=== PATIENT | female | born 1960 | race Caucasian/White ===

== ENCOUNTER 2022-07-11 17:43 | Emergency (ER) | payer OTHER, SELFPAY ==
[2022-07-11 18:04] VITALS: BP 156/82; PULSE 77; RESP 20; TEMP 37.1; O2SAT 98; BMI 39.7
--- NOTE | 2022-07-11 18:24 | XR_ITS ---
The [address] [address] Patient Name: MARK BERNABE MRN: [id number] date: 1960 Sex: F Assigned Patient Location: ER Current Patient Location: ED.MAIN Accession/Order Number: [id number] Exam Date: 07/11/2022 16:35 Report Date: 07/11/2022 19:07 At the request of: PAM VALLE Procedure: XR tibia fibula LT 2V EXAM: XR tibia fibula LT 2V HISTORY: Left calf pain COMPARISON: None. TECHNIQUE: 4 views FINDINGS: IMPRESSION: No osseous lesion, fracture, dislocation or subluxation. Joint spaces are normal. No visualized effusion. Patient is morbidly obese. No gross visualized soft tissue irregularity. Electronically authenticated by: BASHIR VIRGEN Date: 07/11/2022 19:07
--- NOTE | 2022-07-11 18:34 | ED.LOWEXI1 ---
HPI - Extremity Injury (Lower) General Chief Complaint: Extremity Injury, Lower Stated Complaint: fall Time Seen by Provider: 07/11/22 18:24 Source: patient Mode of arrival: walk-in Limitations: no limitations History of Present Illness HPI Narrative: patient is a 61-year-old female presents to the Emergency Room with concerns of left calf pain. 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 Patient states she could feel her calf getting tight with activity.patient states she turned to walk across a mat in her left foot got stuck causing a hyperextension of her calf with pop at the top belly of her calf muscle. Patient denies falling to the ground, states work was short staffed so she stayed to finish her shift and her supervisors were unavailable to file report due to low staff as well. Patient presents with moderate pain to the calf, noted swelling. She denies any history of blood clot. Notes throbbing aching worse with ambulation nonradiating. Related Data Home Medications Medication Instructions Recorded Confirmed estradiol 1 mg tablet 1 mg PO DAILY 07/11/22 07/11/22 spironolactone 50 mg tablet 50 mg PO DAILY 07/11/22 07/11/22 Previous Rx's Medication Instructions Recorded ibuprofen 600 mg tablet 600 mg PO TID PRN pain #30 tabs 07/11/22 Allergies Allergy/AdvReac Type Severity Reaction Status Date / Time No Known Drug Allergies Allergy Verified 07/11/22 18:03 Review of Systems ROS Constitutional Denies: fever or chills Eyes Denies: change in vision Ears, nose, mouth, and throat Denies: throat pain or neck pain Cardiovascular Denies: chest pain or edema Respiratory Denies: shortness of breath Musculoskeletal Reports: extremity pain Integumentary/Breast Denies: rash or itching Psychiatric Denies: anxiety PFSH PFSH Social History Smoking status: Former smoker Exam Narrative Exam Narrative: Vital signs reviewed and nurse's notes. The patient is not hypoxic. General: Alert, no acute distress, patient resting comfortably Skin: warm, intact, no pallor noted Head: Normocephalic, atraumatic Eye: Normal conjunctiva, no exudates Respiratory: No acute distress, lungs CTA Musculoskeletal: No evidence of deformity to the left knee or lower leg. There is mild swelling. There is no ecchymosis. No erythema or warmth noted. DP and PT pulses are intact 2+. Normal sensation, normal capillary refill less than 2 seconds. There is no cyanosis or mottling noted. The patient has tenderness to musculotendinous junction of the medial gastrocnemius. Achilles tendon distally is nontender, The patient has no laxity with varus or valgus stressing. The patient has negative anterior drawer and Dipesh testing. The patient was able to flex and extend although with pain. Patient was able to extend leg off the cart without difficulty. No tenderness noted to the 5th MT, midfoot, ankle or proximal fibular area. There is no pain with calcaneal squeeze, achilles tendon is intact and no defect is palpated. Gonzales's test demonstrates Achilles tendon intact. The patient has no pelvic instability. The patient has no shortening or rotation noted to the bilateral lower extremities. Neurological: alert and orient x4, normal sensory and motor observed. Psychiatric: Cooperative Constitutional Vital Signs - 24 hr 07/11/22 18:04 Temperature 98.8 F Pulse Rate [Monitor] 77 Respiratory Rate 20 Blood Pressure [Left Arm] 156/82 H Pulse Oximetry 98 Oxygen Delivery Method Room Air Course Vital Signs Vital signs: Vital Signs Temperature 98.8 F 07/11/22 18:04 Pulse Rate 77 07/11/22 18:04 Respiratory Rate 20 07/11/22 18:04 Blood Pressure 156/82 H 07/11/22 18:04 Pulse Oximetry 98 07/11/22 18:04 Oxygen Delivery Method Room Air 07/11/22 18:04 Temperature 98.8 F 07/11/22 18:04 Pulse Rate 77 07/11/22 18:04 Respiratory Rate 20 07/11/22 18:04 Blood Pressure 156/82 H 07/11/22 18:04 Pulse Oximetry 98 07/11/22 18:04 Oxygen Delivery Method Room Air 07/11/22 18:04 MDM - Extremity Injury (Lower) MDM Narrative Medical decision making narrative: two view x-ray of the left tibia-fibula without evidence of fracture. We discussed her clinical presentation exam consistent with gastrocnemius strain. Recommend a period of nonweightbearing pending follow-up with occupational medicine clinic as this is a [facility] claim. Patient be instructed on crutch use, given a prescription for a knee scooter to help with mobility in the interim. I will refrain from prescribing a boot until she is evaluated by clinic given the size of her calf, and possible need for custom boot. Patient advised to ice and elevate, Motrin for pain and to not ambulate pending improvement in symptoms. Patient be given a note for work with restrictions I will likely keep her off pending follow-up with occupational health clinic. The patient is to followup with primary care physician in next 2-3 days or to return to the emergency department should any of the signs or symptoms worsen or new symptoms develop. Patient had questions answered. The patient agrees with the following Diagnosis and Treatment plan and the patient will be discharged home. Discharge Plan Discharge Chief Complaint: Extremity Injury, Lower Clinical Impression: Strain of left calf muscle Patient Disposition: Home, Self-Care Time of Disposition Decision: 18:43 Condition: Good Mode of Transportation: Private Vehicle Prescriptions / Home Meds: New ibuprofen 600 mg tablet 600 mg PO TID PRN (Reason: pain) Qty: 30 0RF No Action spironolactone 50 mg tablet 50 mg PO DAILY estradiol 1 mg tablet 1 mg PO DAILY Instructions: Muscle Strain (ED), P.R.I.C.E. Treatment (ED) Additional Instructions: Follow up with [facility], call 07/12 for appt. [phone] ext. [phone] Stand Alone Forms: Portal Instructions Referrals: Physician,Non-Staff, MD [Primary Care Provider] - 1 week Discharge Date/Time: 07/11/22 20:48
[2022-07-11] MEDS: ACETAMINOPHEN 500 MG TABLET 1000 MG PO (20:41)
[2022-07-11] MEDS: IBUPROFEN 600 MG TABLET PO (20:42)
== END 2022-07-11 20:48 | disposition home or self-care (01) ==
PROVIDERS: Emergency Provider Emergency Medicine
DX: S86.812A Strain of other muscle(s) and tendon(s) at lower leg level, left leg, initial encounter (principal); X50.9XXA Other and unspecified overexertion or strenuous movements or postures, initial encounter
CPT/HCPCS: 73590; 99283